=== PATIENT | female | born 1950 | race Caucasian/White ===

== ENCOUNTER 2017-07-17 13:27 | Outpatient (CLI) | payer MEDICARE, BC | END 2017-07-17 13:28 | disposition home or self-care (01) | LOC: BICULT 13:27 | PROVIDERS: ATTEND Urology | DX: N28.1 Cyst of kidney, acquired (principal); N28.89 Other specified disorders of kidney and ureter; N39.41 Urge incontinence | CPT/HCPCS: 76770 ==

== ENCOUNTER 2020-03-09 10:32 | Outpatient (CLI) | payer MEDICARE, OTHER ==
--- NOTE | 2020-03-09 13:24 | MRI ---
MRI lumbar spine noncontrast: HISTORY: Acute lumbar radiculopathy. Lumbar stenosis with neurogenic claudication. COMPARISON: 10/26/2013 FINDINGS: Appropriate T1 marrow signal intensity of the lumbar vertebra. Lumbar spine vertebral body heights ar e maintained. No fracture. Remote Schmorl's node along the superior endplate of T12, inferior endplate of L1 on the inferior endplate of L2, inferior endplate of L3. No significant STIR hyperinte nsity to suggest vertebral body edema or ligamentous injury. There are minimal type I Modic changes along the posterior L3-L4 disc space. Appropriate signal intensity in the visualized paraspinal muscles and solid organs Conus medullaris terminates at the inferior aspect of L1. There are bilateral renal parapelvic cysts as well as cortical cyst Spondylolisthesis: 2.6 mm of retrolisthesis of L3 upon L4 and 4 mm of anterolisthesis of L4 upon L5 T12-L1:Adequate disc hydration. No significant central canal stenosis. Patent bilateral neural forami na L1-L2:Disc desiccation with mild loss of disc space height. Broad-based disc bulge with mild central canal stenosis. Mild bilateral neural foraminal narrowing L2-L3:Disc desiccation without significant loss of disc space height. Broad-based disc bulge abuts th e thecal sac. There is mild to moderate central canal stenosis. Narrowing of the left subarticular zone with partial obscuration the traversing left L3 nerve root. There is evidence of a midline annul ar fissure. Mild right neural foraminal narrowing. Moderate left neural foraminal narrowing due to disc material. L3-L4:Disc desiccation without significant loss of disc space height. Broad-based disc bulge results in mild stenosis of the thecal sac. Disc material encroaches upon bilateral subarticular zones. Contact upon bilateral traversing L4 nerve roots without significant obscuration. There is a midline annular fissure. Moderate right and [id number] left neural foraminal narrowing L4-L5:Disc desiccation without significant loss of disc space height. Broad-based disc bulge, ligamen t flavum thickening and facet result in moderate central canal stenosis. There is fluid in both facet joints. Mild narrowing of bilateral subarticular zones with partial obscuration traversing bila teral L5 nerve roots. Moderate bilateral neural foraminal narrowing L5-S1:Broad-based disc bulge without significant central canal stenosis or significant neural foramin al narrowing. Mild bilateral facet hypertrophy. IMPRESSION: Multilevel degenerative changes of the lumbar spine as detailed above. Transcribed Date/Time: 03/09/2020 1:33 PM
== END 2020-03-09 10:33 | disposition home or self-care (01) ==
LOC: BICMRI 10:32
PROVIDERS: ATTEND Anesthesiology Pain Medicine
DX: M48.062 Spinal stenosis, lumbar region with neurogenic claudication (principal); M47.26 Other spondylosis with radiculopathy, lumbar region
CPT/HCPCS: 72148

== ENCOUNTER 2020-10-30 15:21 | Emergency (ER) | payer OTHER, MEDICARE ==
[2020-10-30] MEDS ORDERED: HYDROcodone/Acetaminophen 10/325 mg Tablet ONE (18:47)
[2020-10-30] MEDS ORDERED: Ketorolac Tromethamine 30 MG/ML VIAL ONE ×2 (18:47)
== END 2020-10-30 19:12 | disposition home or self-care (01) ==
LOC: ERS 15:21
DX: S06.0X0A Concussion without loss of consciousness, initial encounter (principal); S22.32XA Fracture of one rib, left side, initial encounter for closed fracture; I10 Essential (primary) hypertension; E78.5 Hyperlipidemia, unspecified; K21.9 Gastro-esophageal reflux disease without esophagitis; W01.198A Fall on same level from slipping, tripping and stumbling with subsequent striking against other object, initial encounter
CPT/HCPCS: 70450; 96372; J1885

== ENCOUNTER 2020-11-23 11:58 | Outpatient (CLI) | payer MEDICARE | END 2020-11-23 11:59 | disposition home or self-care (01) | LOC: BICRAD 11:58 | PROVIDERS: ATTEND Nurse Practitioner Family | DX: M53.3 Sacrococcygeal disorders, not elsewhere classified (principal); M54.42 Lumbago with sciatica, left side; M54.41 Lumbago with sciatica, right side; R10.2 Pelvic and perineal pain; M47.816 Spondylosis without myelopathy or radiculopathy, lumbar region; S32.19XD Other fracture of sacrum, subsequent encounter for fracture with routine healing | CPT/HCPCS: 72110; 72170; 72220 ==

== ENCOUNTER 2021-12-24 13:06 | Inpatient (IN) | payer MEDICARE ==
[2021-12-24 13:53] LABS: #Eosinphils 0.1 thou/uL (0.0-0.7); #Lymphocytes 1.6 thou/uL (1.20-3.40); #Monocytes 0.6 thou/uL (0.11-0.59); %Basophils 0.5 % (0.0-1.0); %Monocytes 8.2 % (0.0-10.0); %Neutrophils 68.2 % (42.0-75.0); Hemoglobin 12.9 g/dL (12.0-16.0); Mean Corpuscular Hemoglobin 28.5 pg (27.0-31.0); Mean Platelet Volume 9.2 fL (7.4-10.4); Platelet Count 169 thou/uL (130-400); RBC Distribution Width 12.9 % (11.5-14.5); Red Blood Cell (RBC) Count 4.51 mill/uL (4.20-5.40); White Blood Cell (WBC) Count 7.3 thou/uL (4.8-10.8)
[2021-12-24 14:29] LABS: ALT (SGPT) 15 U/L (8-55); AST (SGOT) 20 U/L (5-34); Albumin 3.8 g/dL (3.4-4.8); Alkaline Phosphatase 92 U/L (40-110); Anion Gap 15 mmol/L (10-20); BUN (Urea Nitrogen) 16 mg/dL (9.8-20.1); Bilirubin, Total 1.4 mg/dL (0.2-1.2); Calc. Creatinine Clearance 0 mL/min (70-130); Calcium 9.2 mg/dL (7.8-10.44); Carbon Dioxide 20 mmol/L (23-31); Chloride 109 mmol/L (98-107); Estimated GFR 41; Globulin 2.2 g/dL (2.4-3.5); Glucose 117 mg/dL (83-110); Lipase 12 U/L (8-78); Potassium 3.7 mmol/L (3.5-5.1); Sodium 140 mmol/L (136-145)
[2021-12-24] MEDS ORDERED: Iopamidol-370 76% 500 ML 1 ML ONE (14:30)
[2021-12-24 14:43] LABS: CKMB 1.7 ng/mL (0-6.6)
[2021-12-24] MEDS ORDERED: Aspirin Chewable 81 MG TAB ONE (16:14)
[2021-12-24] MEDS ORDERED: Furosemide 40 MG/4 ML VIAL ONE (16:15)
[2021-12-24] MEDS ORDERED: Nitroglycerin 2% Ointment 1 INCH/1 GM Packet ONE (16:15)
[2021-12-24] MEDS ORDERED: hydrALAZINE 20 MG/ML VIAL SLOW IVP PRN (20:00)
[2021-12-24] MEDS ORDERED: Losartan 25 MG TAB PO SCH (21:00)
[2021-12-24] MEDS ORDERED: PAROXETINE HCL 40 MG PO SCH (21:00)
[2021-12-24] MEDS: Trospium 20 MG TAB PO SCH (21:37)
[2021-12-24] MEDS: hydrOXYzine 10 MG TAB PO PRN (21:39)
[2021-12-24] MEDS: Topiramate 25 MG TAB PO SCH (21:39)
[2021-12-24] MEDS: PARoxetine 20 MG TAB PO SCH (21:39)
[2021-12-24 23:57] LABS: Troponin I 0.154 ng/mL (< 0.028)
[2021-12-24] MEDS ORDERED: HYDROcodone/Acetaminophen 10/325 mg Tablet PO PRN (23:58)
[2021-12-25 03:52] VITALS: BMI 31.2
[2021-12-25 04:34] LABS: #Basophils 0.1 thou/uL (0.0-0.2); #Eosinphils 0.1 thou/uL (0.0-0.7); #Lymphocytes 1.8 thou/uL (1.20-3.40); #Monocytes 0.5 thou/uL (0.11-0.59); #Neutrophils 3.4 thou/uL (1.40-6.50); %Basophils 0.9 % (0.0-1.0); %Eosinophils 0.9 % (0.0-10.0); %Lymphocytes 30.3 % (21.0-51.0); %Monocytes 9.2 % (0.0-10.0); %Neutrophils 58.6 % (42.0-75.0); Hemoglobin 12.5 g/dL (12.0-16.0); Mean Corpuscular HGB CONC 32.3 g/dL (32.0-36.0); Mean Corpuscular Hemoglobin 29.5 pg (27.0-31.0); Mean Corpuscular Volume 91.5 fl (78.0-98.0); Mean Platelet Volume 9.6 fL (7.4-10.4); Platelet Count 141 thou/uL (130-400); RBC Distribution Width 13.1 % (11.5-14.5); Red Blood Cell (RBC) Count 4.23 mill/uL (4.20-5.40); White Blood Cell (WBC) Count 5.9 thou/uL (4.8-10.8)
[2021-12-25 05:24] LABS: ALT (SGPT) 13 U/L (8-55); AST (SGOT) 15 U/L (5-34); Albumin 3.5 g/dL (3.4-4.8); Alkaline Phosphatase 85 U/L (40-110); Anion Gap 14 mmol/L (10-20); BUN (Urea Nitrogen) 14 mg/dL (9.8-20.1); Calc. Creatinine Clearance 62 mL/min (70-130); Calcium 9.1 mg/dL (7.8-10.44); Carbon Dioxide 21 mmol/L (23-31); Chloride 108 mmol/L (98-107); Estimated GFR 53; Globulin 2.2 g/dL (2.4-3.5); Glucose 98 mg/dL (83-110); Potassium 3.2 mmol/L (3.5-5.1); Protein, Total 5.7 g/dL (5.8-8.1); Sodium 140 mmol/L (136-145)
[2021-12-25] MEDS ORDERED: Furosemide 20 MG/2 ML VIAL SLOW IVP SCH (06:00)
[2021-12-25] MEDS: Furosemide 20 MG/2 ML VIAL SLOW IVP SCH ×2 (06:05→13:37)
[2021-12-25] MEDS ORDERED: Non-Formulary Item 1 EACH (Paroxetine Hcl [Paroxetine Hcl] 10 MG Tablet) PO SCH (07:30)
[2021-12-25] MEDS ORDERED: Potassium Chloride 20 MEQ TAB PO SCH (08:30)
[2021-12-25] MEDS ORDERED: Enoxaparin Sodium 40 MG/0.4 ML SYRINGE SC SCH (09:00)
[2021-12-25] MEDS ORDERED: Spironolactone 25 MG TAB PO SCH (09:45)
[2021-12-25 10:20] LABS: Cardiac Risk 3.1 (Less than 4.5); Cholesterol 109 mg/dl (< 200 Desired); HDL Cholesterol 35 mg/dL (>60 Neg Risk); LDL Cholesterol, Calculated 42 mg/dL; Magnesium 1.6 mg/dL (1.6-2.6); Phosphorus 3.5 mg/dL (2.3-4.7); Triglycerides 158 mg/dL (Less than 150)
[2021-12-25] MEDS: Atorvastatin Calcium 40 MG TAB PO SCH (10:47)
[2021-12-25] MEDS ORDERED: Acetaminophen 325 MG TAB PO PRN (12:04)
[2021-12-25] MEDS ORDERED: Magnesium 2 GM/50 ML(in water) 1 GM in Premix Bag 1 BAG IVPB SCH (12:15)
[2021-12-25] MEDS ORDERED: Potassium Phosphate 9 MMOL in Sodium Chloride 0.9% 100 ML IVPB SCH (12:30)
[2021-12-25] MEDS ORDERED: Communication Order-Pharmacy FS PRN (13:30)
[2021-12-25] MEDS: Carvedilol 6.25 MG TAB PO SCH (20:35)
[2021-12-25] MEDS: Trospium 20 MG TAB PO SCH (20:36)
[2021-12-25] MEDS: Topiramate 25 MG TAB PO SCH (20:36)
[2021-12-25] MEDS: PARoxetine 20 MG TAB PO SCH (20:36)
[2021-12-25] MEDS: hydrOXYzine 10 MG TAB PO PRN (20:37)
[2021-12-25] MEDS ORDERED: Losartan 25 MG TAB PO SCH (21:00)
[2021-12-26 05:15] LABS: #Lymphocytes 1.5 thou/uL (1.20-3.40); #Monocytes 0.6 thou/uL (0.11-0.59); #Neutrophils 3.2 thou/uL (1.40-6.50); %Basophils 0.3 % (0.0-1.0); %Eosinophils 0.8 % (0.0-10.0); %Lymphocytes 27.8 % (21.0-51.0); %Neutrophils 60.1 % (42.0-75.0); Mean Corpuscular HGB CONC 31.9 g/dL (32.0-36.0); Mean Corpuscular Hemoglobin 29.2 pg (27.0-31.0); Mean Corpuscular Volume 91.6 fl (78.0-98.0); Mean Platelet Volume 9.4 fL (7.4-10.4); Platelet Count 129 thou/uL (130-400); RBC Distribution Width 12.9 % (11.5-14.5); Red Blood Cell (RBC) Count 4.11 mill/uL (4.20-5.40); White Blood Cell (WBC) Count 5.3 thou/uL (4.8-10.8)
[2021-12-26 05:35] LABS: Anion Gap 12 mmol/L (10-20); BUN (Urea Nitrogen) 14 mg/dL (9.8-20.1); Calc. Creatinine Clearance 61 mL/min (70-130); Calcium 8.7 mg/dL (7.8-10.44); Carbon Dioxide 27 mmol/L (23-31); Chloride 105 mmol/L (98-107); Estimated GFR 52; Glucose 94 mg/dL (83-110); Phosphorus 4.2 mg/dL (2.3-4.7); Potassium 3.2 mmol/L (3.5-5.1); Sodium 141 mmol/L (136-145)
[2021-12-26] MEDS: PARoxetine 20 MG TAB PO SCH ×2 (05:48→21:09)
[2021-12-26] MEDS: Spironolactone 25 MG TAB PO SCH (05:48)
[2021-12-26] MEDS: Atorvastatin Calcium 40 MG TAB PO SCH (05:48)
[2021-12-26] MEDS: Sacubitril 49 MG/Valsartan 51 MG TABLET PO SCH ×2 (05:49→21:08)
[2021-12-26] MEDS: Carvedilol 6.25 MG TAB PO SCH ×2 (05:49→21:08)
[2021-12-26] MEDS ORDERED: Midazolam HCl 2 mg/2 ml Vial ONE (06:49)
[2021-12-26] MEDS ORDERED: Fentanyl 100 MCG/2 ML VIAL ONE (06:49)
[2021-12-26] MEDS ORDERED: Heparin 10,000 UNITS/ 10 ML VIAL ONE (06:50)
[2021-12-26] MEDS ORDERED: Lidocaine 1% (PF) 30 ML VIAL ONE (06:50)
[2021-12-26] MEDS: Furosemide 20 MG/2 ML VIAL SLOW IVP SCH ×2 (07:38→14:15)
[2021-12-26] MEDS ORDERED: Sacubitril 49 MG/Valsartan 51 MG TABLET PO SCH (09:00)
[2021-12-26] MEDS ORDERED: Empagliflozin 10 MG TAB PO SCH (09:00)
[2021-12-26] MEDS ORDERED: Iopamidol 370 76% 100 ML VIAL ONE (12:21)
[2021-12-26] MEDS ORDERED: Potassium Chloride 20 MEQ TAB PO SCH (16:00)
[2021-12-26] MEDS ORDERED: Docusate 100 MG CAP PO PRN (20:47)
[2021-12-26] MEDS: Trospium 20 MG TAB PO SCH (21:09)
[2021-12-26] MEDS: hydrOXYzine 10 MG TAB PO PRN (21:09)
[2021-12-26] MEDS: Topiramate 25 MG TAB PO SCH (21:09)
[2021-12-27 04:42] LABS: #Eosinphils 0.1 thou/uL (0.0-0.7); #Lymphocytes 1.4 thou/uL (1.20-3.40); #Monocytes 0.5 thou/uL (0.11-0.59); #Neutrophils 2.8 thou/uL (1.40-6.50); %Basophils 0.5 % (0.0-1.0); %Eosinophils 1.3 % (0.0-10.0); %Lymphocytes 29.1 % (21.0-51.0); %Monocytes 10.4 % (0.0-10.0); %Neutrophils 58.7 % (42.0-75.0); Mean Corpuscular HGB CONC 31.3 g/dL (32.0-36.0); Mean Corpuscular Hemoglobin 28.6 pg (27.0-31.0); Mean Corpuscular Volume 91.6 fl (78.0-98.0); Mean Platelet Volume 9.5 fL (7.4-10.4); Platelet Count 135 thou/uL (130-400); RBC Distribution Width 13.2 % (11.5-14.5); Red Blood Cell (RBC) Count 4.19 mill/uL (4.20-5.40); White Blood Cell (WBC) Count 4.8 thou/uL (4.8-10.8)
[2021-12-27 05:03] LABS: Anion Gap 15 mmol/L (10-20); BUN (Urea Nitrogen) 11 mg/dL (9.8-20.1); Calc. Creatinine Clearance 63 mL/min (70-130); Calcium 8.5 mg/dL (7.8-10.44); Carbon Dioxide 23 mmol/L (23-31); Chloride 106 mmol/L (98-107); Estimated GFR 57; Glucose 101 mg/dL (83-110); Potassium 3.7 mmol/L (3.5-5.1); Sodium 140 mmol/L (136-145)
[2021-12-27] MEDS: Furosemide 20 MG/2 ML VIAL SLOW IVP SCH ×2 (05:59→18:14)
[2021-12-27] MEDS: Carvedilol 6.25 MG TAB PO SCH ×2 (08:41→21:01)
[2021-12-27] MEDS: Sacubitril 49 MG/Valsartan 51 MG TABLET PO SCH ×2 (08:41→21:01)
[2021-12-27] MEDS: Atorvastatin Calcium 40 MG TAB PO SCH (08:43)
[2021-12-27] MEDS: Spironolactone 25 MG TAB PO SCH (08:43)
[2021-12-27] MEDS: Empagliflozin 10 MG TAB PO SCH (08:43)
[2021-12-27] MEDS: PARoxetine 20 MG TAB PO SCH ×2 (08:51→21:01)
[2021-12-27] MEDS ORDERED: FLU VACC QS2022-23(65YR UP)/PF 240 MCG/0.7 ML SYRINGE IM ONE (09:00)
[2021-12-27] MEDS ORDERED: Enoxaparin Sodium 40 MG/0.4 ML SYRINGE SC SCH (21:00)
[2021-12-27] MEDS: Trospium 20 MG TAB PO SCH (21:01)
[2021-12-27] MEDS: Topiramate 25 MG TAB PO SCH (21:03)
[2021-12-28 04:41] LABS: #Eosinphils 0.1 thou/uL (0.0-0.7); #Lymphocytes 1.9 thou/uL (1.20-3.40); #Monocytes 0.6 thou/uL (0.11-0.59); #Neutrophils 3.7 thou/uL (1.40-6.50); %Basophils 0.7 % (0.0-1.0); %Eosinophils 2.2 % (0.0-10.0); %Lymphocytes 29.9 % (21.0-51.0); %Monocytes 9.9 % (0.0-10.0); %Neutrophils 57.3 % (42.0-75.0); Hemoglobin 13.7 g/dL (12.0-16.0); Mean Corpuscular HGB CONC 32.3 g/dL (32.0-36.0); Mean Corpuscular Hemoglobin 29.8 pg (27.0-31.0); Mean Corpuscular Volume 92.5 fl (78.0-98.0); Mean Platelet Volume 8.8 fL (7.4-10.4); Platelet Count 155 thou/uL (130-400); RBC Distribution Width 13.2 % (11.5-14.5); Red Blood Cell (RBC) Count 4.59 mill/uL (4.20-5.40); White Blood Cell (WBC) Count 6.4 thou/uL (4.8-10.8)
[2021-12-28 04:43] LABS: Anion Gap 14 mmol/L (10-20); BUN (Urea Nitrogen) 15 mg/dL (9.8-20.1); Calc. Creatinine Clearance 58 mL/min (70-130); Calcium 9.1 mg/dL (7.8-10.44); Carbon Dioxide 24 mmol/L (23-31); Chloride 107 mmol/L (98-107); Estimated GFR 53; Glucose 113 mg/dL (83-110); Potassium 3.7 mmol/L (3.5-5.1); Sodium 141 mmol/L (136-145)
[2021-12-28] MEDS ORDERED: Furosemide 40 MG TAB PO SCH (07:30)
[2021-12-28] MEDS ORDERED: Furosemide 20 MG TAB PO SCH (07:30)
[2021-12-28] MEDS: Spironolactone 25 MG TAB PO SCH (09:07)
[2021-12-28] MEDS: Atorvastatin Calcium 40 MG TAB PO SCH (09:08)
[2021-12-28] MEDS: PARoxetine 20 MG TAB PO SCH (09:08)
[2021-12-28] MEDS: Empagliflozin 10 MG TAB PO SCH (09:09)
[2021-12-28] MEDS: Carvedilol 6.25 MG TAB PO SCH (09:09)
[2021-12-28] MEDS: Sacubitril 49 MG/Valsartan 51 MG TABLET PO SCH (09:09)
[2021-12-28 14:33] VITALS: BP 107/55; TEMP 98.6
== END 2021-12-28 18:45 | disposition home or self-care (01) | DRG 286 ==
LOC: ERS 13:06 → 2NO 17:39
PROVIDERS: ADMIT Student in an Organized Health Care Education/Training Program; ATTEND Student in an Organized Health Care Education/Training Program
PROC: 4A023N7 Measurement of Cardiac Sampling and Pressure, Left Heart, Percutaneous Approach (ICD-10-PCS; principal; 2021-12-26)
PROC: B2111ZZ Fluoroscopy of Multiple Coronary Arteries using Low Osmolar Contrast (ICD-10-PCS; 2021-12-26)
PROC: B2151ZZ Fluoroscopy of Left Heart using Low Osmolar Contrast (ICD-10-PCS; 2021-12-26)
DX: I13.0 Hypertensive heart and chronic kidney disease with heart failure and stage 1 through stage 4 chronic kidney disease, or unspecified chronic kidney disease (principal); I50.21 Acute systolic (congestive) heart failure; I24.8 Other forms of acute ischemic heart disease; Z20.822 Contact with and (suspected) exposure to COVID-19; K21.9 Gastro-esophageal reflux disease without esophagitis; G89.29 Other chronic pain; F32.A Depression, unspecified; M19.90 Unspecified osteoarthritis, unspecified site; M81.0 Age-related osteoporosis without current pathological fracture; F41.0 Panic disorder [episodic paroxysmal anxiety]; N18.31 Chronic kidney disease, stage 3a; E87.6 Hypokalemia; I44.7 Left bundle-branch block, unspecified; F41.9 Anxiety disorder, unspecified; I42.9 Cardiomyopathy, unspecified; Z98.890 Other specified postprocedural states; Z79.899 Other long term (current) drug therapy; Z88.0 Allergy status to penicillin; Z88.8 Allergy status to other drugs, medicaments and biological substances; Z90.710 Acquired absence of both cervix and uterus
CPT/HCPCS: 36415; 71275; 80048; 80053; 80061; 82553; 83690; 83735; 83880; 84100; 84484; 85025; 85520; 93005; 93306; 93458; 93798; 96374; 99152; C1769; J1644; J1650; J1940; J2001; J2250; J3010; J3475; J3490; Q9967; U0003; U0005

== ENCOUNTER 2022-05-01 10:54 | Outpatient (CLI) | payer MEDICARE ==
[2022-05-01 12:19] LABS: Hemoglobin 13.3 g/dL (12.0-15.5); Mean Corpuscular HGB CONC 32.3 g/dL (32.0-36.0); Mean Corpuscular Hemoglobin 30.3 pg (27.0-33.0); Mean Corpuscular Volume 93.8 fl (81.6-98.3); Mean Platelet Volume 10.6 fl (7.4-10.4); Platelet Count 157 10x3/uL (150-450); RBC Distribution Width 14.2 % (11.5-14.5); Red Blood Cell (RBC) Count 4.39 10x6/uL (3.90-5.03); White Blood Cell (WBC) Count 6.2 10x3/uL (3.5-10.5)
[2022-05-01 12:53] LABS: Anion Gap 13 mmol/L (10-20); BUN (Urea Nitrogen) 19 mg/dL (9.8-20.1); Calc. Creatinine Clearance 0 mL/min (70-130); Calcium 9.4 mg/dL (7.8-10.44); Carbon Dioxide 23 mmol/L (23-31); Chloride 109 mmol/L (98-107); Estimated GFR 45; Glucose 93 mg/dL (83-110); Potassium 4.4 mmol/L (3.5-5.1); Sodium 141 mmol/L (136-145)
== END 2022-05-01 10:55 | disposition home or self-care (01) ==
LOC: LABBT 10:54
PROVIDERS: ATTEND Internal Medicine Cardiovascular Disease
DX: Z01.812 Encounter for preprocedural laboratory examination (principal); I50.22 Chronic systolic (congestive) heart failure
CPT/HCPCS: 80048; 85027

== ENCOUNTER 2022-05-03 07:50 | Day surgery (SDC) | payer MEDICARE ==
[2022-05-01 13:47] VITALS: BMI 27.1
[2022-05-03] MEDS ORDERED: Midazolam HCl 2 mg/2 ml Vial ONE (10:55)
[2022-05-03] MEDS ORDERED: Ketamine 50 MG/ML (10ML VIAL) ONE ×2 (10:56)
[2022-05-03] MEDS ORDERED: Clindamycin/D5W 900 mg/50 ml Premix Bag ONE (10:57)
[2022-05-03] MEDS ORDERED: Gentamicin 80 MG/2 ML VIAL ONE (10:57)
[2022-05-03] MEDS ORDERED: Lidocaine 1% (PF) 30 ML VIAL ONE ×2 (11:02→12:12)
[2022-05-03] MEDS ORDERED: Vancomycin 500 MG VIAL (PEDI) ONE (11:38)
[2022-05-03] MEDS ORDERED: FENTANYL 50 MCG/ML 1 ML VIAL ONE (12:47)
[2022-05-03] MEDS ORDERED: Iopamidol 370 76% 100 ML VIAL ONE (14:42)
[2022-05-03] MEDS ORDERED: Doxycycline 100 MG CAP PO SCH (21:00)
== END 2022-05-03 16:50 | disposition home or self-care (01) ==
LOC: SDC 07:50
PROVIDERS: ATTEND Internal Medicine Cardiovascular Disease
PROC: 0JH609Z Insertion of Cardiac Resynchronization Defibrillator Pulse Generator into Chest Subcutaneous Tissue and Fascia, Open Approach (ICD-10-PCS; principal; 2022-05-03)
PROC: 02H63KZ Insertion of Defibrillator Lead into Right Atrium, Percutaneous Approach (ICD-10-PCS; 2022-05-03)
PROC: 02HK3KZ Insertion of Defibrillator Lead into Right Ventricle, Percutaneous Approach (ICD-10-PCS; 2022-05-03)
PROC: 02HL3KZ Insertion of Defibrillator Lead into Left Ventricle, Percutaneous Approach (ICD-10-PCS; 2022-05-03)
DX: I44.7 Left bundle-branch block, unspecified (principal); I11.0 Hypertensive heart disease with heart failure; I50.22 Chronic systolic (congestive) heart failure; I42.8 Other cardiomyopathies; E78.00 Pure hypercholesterolemia, unspecified; K21.9 Gastro-esophageal reflux disease without esophagitis; G89.29 Other chronic pain; M54.9 Dorsalgia, unspecified; M79.7 Fibromyalgia; M19.90 Unspecified osteoarthritis, unspecified site; Z87.891 Personal history of nicotine dependence; Z88.0 Allergy status to penicillin; Z88.8 Allergy status to other drugs, medicaments and biological substances; Z95.5 Presence of coronary angioplasty implant and graft; Z79.84 Long term (current) use of oral hypoglycemic drugs; Z79.82 Long term (current) use of aspirin; Z79.899 Other long term (current) drug therapy
CPT/HCPCS: 33225; 33249; 71045; 93005; 93641; C1777; C1882; C1898; C1900; J3010; 33216; J1580; J2001; J2250; J3371; J3490; Q9967

== ENCOUNTER 2022-05-10 12:39 | Inpatient (IN) | payer MEDICARE ==
[2022-05-10 13:26] LABS: Hemoglobin 12.7 g/dL (12.0-16.0); Mean Corpuscular HGB CONC 32.6 g/dL (32.0-36.0); Mean Corpuscular Hemoglobin 31.1 pg (27.0-31.0); Mean Corpuscular Volume 95.4 fl (78.0-98.0); Mean Platelet Volume 8.4 fL (7.4-10.4); Platelet Count 83 10x3/uL (130-400); RBC Distribution Width 12.7 % (11.5-14.5); Red Blood Cell (RBC) Count 4.08 mill/uL (4.20-5.40); White Blood Cell (WBC) Count 7.1 10x3/uL (4.8-10.8)
[2022-05-10] MEDS ORDERED: Morphine 4 MG/ML VIAL ONE (13:28)
[2022-05-10] MEDS ORDERED: Aspirin Chewable 81 MG TAB ONE (13:29)
[2022-05-10] MEDS ORDERED: Ondansetron PF 4 MG/2 ML Vial ONE (13:29)
[2022-05-10 13:34] LABS: ALT (SGPT) 16 U/L (8-55); AST (SGOT) 17 U/L (5-34); Albumin 3.5 g/dL (3.4-4.8); Alkaline Phosphatase 107 U/L (40-110); Anion Gap 11 mmol/L (10-20); BUN (Urea Nitrogen) 31 mg/dL (9.8-20.1); Bilirubin, Total 0.5 mg/dL (0.2-1.2); Calc. Creatinine Clearance 0 mL/min (70-130); Carbon Dioxide 20 mmol/L (23-31); Chloride 113 mmol/L (98-107); Estimated GFR 58; Globulin 2.5 g/dL (2.4-3.5); Glucose 97 mg/dL (83-110); Potassium 3.8 mmol/L (3.5-5.1); Sodium 140 mmol/L (136-145)
[2022-05-10] MEDS ORDERED: Furosemide 20 MG/2 ML VIAL ONE (13:43)
[2022-05-10 13:57] LABS: CKMB 0.7 ng/mL (0-6.6)
[2022-05-10 14:37] LABS: #Eosinphils 0.2 thou/uL (0.0-0.7); #Monocytes 0.6 thou/uL (0.11-0.59); #Neutrophils 4.3 thou/uL (1.40-6.50); %Basophils 0.4 % (0.0-1.0); %Eosinophils 2.7 % (0.0-10.0); %Lymphocytes 28.2 % (21.0-51.0); %Monocytes 7.9 % (0.0-10.0); %Neutrophils 60.9 % (42.0-75.0); Band 1 % (5-11); Eosinophils 1 % (0-10); Lymphocytes 24 % (21-51); MDiff Complete? YES; Monocytes 2 % (0-10); Neutrophil 72 % (42-75); Platelet Morphology Comment Appears Decreased; RBC Morphology Normal
[2022-05-10] MEDS ORDERED: Ondansetron ODT 4 MG TAB PO PRN (15:25)
[2022-05-10] MEDS ORDERED: Ondansetron PF 4 MG/2 ML Vial IVP PRN (15:25)
[2022-05-10] MEDS ORDERED: Acetaminophen 325 MG TAB PO PRN (15:25)
[2022-05-10] MEDS ORDERED: Heparin 25,000 units/D5W 500 ML ONE (15:27)
[2022-05-10] MEDS ORDERED: Heparin 25,000 units/D5W 500 ML IVPB SCH (15:30)
[2022-05-10] MEDS ORDERED: Heparin 10,000 UNITS/ 10 ML VIAL SLOW IVP SCH (15:30)
[2022-05-10] MEDS ORDERED: Heparin 10,000 UNITS/ 10 ML VIAL ONE (15:33)
[2022-05-10 17:54] LABS: PTT 27.7 sec (22.9-36.1); Prothrombin Time 14.1 sec (12.0-14.7)
[2022-05-10 21:48] LABS: PTT Greater than 250.0 sec (22.9-36.1)
[2022-05-10] MEDS: Atorvastatin Calcium 40 MG TAB PO SCH (21:52)
[2022-05-10] MEDS ORDERED: Topiramate 25 MG TAB PO SCH (22:30)
[2022-05-10] MEDS ORDERED: PARoxetine 20 MG TAB PO SCH ×2 (22:30)
[2022-05-10] MEDS ORDERED: Carvedilol 6.25 MG TAB PO SCH (22:30)
[2022-05-11 00:10] LABS: PTT 228.3 sec (22.9-36.1)
[2022-05-11 03:19] LABS: #Basophils 0.1 thou/uL (0.0-0.2); #Eosinphils 0.2 thou/uL (0.0-0.7); #Lymphocytes 2.5 thou/uL (1.20-3.40); #Monocytes 0.5 thou/uL (0.11-0.59); #Neutrophils 3.1 thou/uL (1.40-6.50); %Basophils 1.3 % (0.0-1.0); %Eosinophils 2.8 % (0.0-10.0); %Lymphocytes 39.5 % (21.0-51.0); %Monocytes 8.1 % (0.0-10.0); %Neutrophils 48.3 % (42.0-75.0); Hemoglobin 12.8 g/dL (12.0-16.0); Mean Corpuscular HGB CONC 33.7 g/dL (32.0-36.0); Mean Corpuscular Hemoglobin 32.1 pg (27.0-31.0); Mean Corpuscular Volume 95.5 fl (78.0-98.0); Mean Platelet Volume 8.2 fL (7.4-10.4); Platelet Count 78 10x3/uL (130-400); RBC Distribution Width 12.5 % (11.5-14.5); Red Blood Cell (RBC) Count 3.99 mill/uL (4.20-5.40); White Blood Cell (WBC) Count 6.4 10x3/uL (4.8-10.8)
[2022-05-11 03:49] LABS: Anion Gap 13 mmol/L (10-20); BUN (Urea Nitrogen) 32 mg/dL (9.8-20.1); Calc. Creatinine Clearance 61 mL/min (70-130); Calcium 9.2 mg/dL (7.8-10.44); Carbon Dioxide 21 mmol/L (23-31); Chloride 111 mmol/L (98-107); Estimated GFR 59; Glucose 97 mg/dL (83-110); Sodium 141 mmol/L (136-145)
[2022-05-11] MEDS: Empagliflozin 10 MG TAB PO SCH (10:12)
[2022-05-11] MEDS: Topiramate 25 MG TAB PO SCH ×2 (10:12→20:55)
[2022-05-11] MEDS: Spironolactone 25 MG TAB PO SCH (10:17)
[2022-05-11] MEDS: Carvedilol 6.25 MG TAB PO SCH ×2 (10:17→18:36)
[2022-05-11 11:35] LABS: PTT 227.8 sec (22.9-36.1)
[2022-05-11 14:15] LABS: PTT 124.1 sec (22.9-36.1)
[2022-05-11 15:01] VITALS: BMI 27.1
[2022-05-11] MEDS: Atorvastatin Calcium 40 MG TAB PO SCH (20:54)
[2022-05-11] MEDS ORDERED: PARoxetine 20 MG TAB PO SCH ×2 (21:00)
[2022-05-12 02:28] LABS: #Basophils 0.1 thou/uL (0.0-0.2); #Eosinphils 0.2 thou/uL (0.0-0.7); #Lymphocytes 2.2 thou/uL (1.20-3.40); #Monocytes 0.5 thou/uL (0.11-0.59); #Neutrophils 4.2 thou/uL (1.40-6.50); %Eosinophils 2.4 % (0.0-10.0); %Lymphocytes 30.2 % (21.0-51.0); %Monocytes 7.4 % (0.0-10.0); Hemoglobin 12.7 g/dL (12.0-16.0); Mean Corpuscular HGB CONC 32.9 g/dL (32.0-36.0); Mean Corpuscular Hemoglobin 31.6 pg (27.0-31.0); Mean Corpuscular Volume 95.9 fl (78.0-98.0); Mean Platelet Volume 8.3 fL (7.4-10.4); Platelet Count 88 10x3/uL (130-400); RBC Distribution Width 12.5 % (11.5-14.5); White Blood Cell (WBC) Count 7.2 10x3/uL (4.8-10.8)
[2022-05-12 02:42] LABS: PTT 127.9 sec (22.9-36.1)
[2022-05-12 03:21] LABS: Anion Gap 11 mmol/L (10-20); BUN (Urea Nitrogen) 43 mg/dL (9.8-20.1); Calc. Creatinine Clearance 54 mL/min (70-130); Calcium 9.1 mg/dL (7.8-10.44); Carbon Dioxide 23 mmol/L (23-31); Chloride 110 mmol/L (98-107); Estimated GFR 51; Glucose 103 mg/dL (83-110); Potassium 4.3 mmol/L (3.5-5.1); Sodium 140 mmol/L (136-145)
[2022-05-12] MEDS: Carvedilol 6.25 MG TAB PO SCH (08:52)
[2022-05-12] MEDS: Topiramate 25 MG TAB PO SCH (08:52)
[2022-05-12] MEDS: Spironolactone 25 MG TAB PO SCH (08:53)
[2022-05-12] MEDS: Empagliflozin 10 MG TAB PO SCH (08:53)
[2022-05-12] MEDS ORDERED: Apixaban 5 MG TAB PO SCH (09:00)
[2022-05-12 12:02] VITALS: BP 122/59; TEMP 97.5
[2022-05-19] MEDS ORDERED: Apixaban 5 MG TAB PO SCH (09:00)
== END 2022-05-12 15:07 | disposition home or self-care (01) | DRG 300 ==
LOC: ERS 12:39 → 2NO 15:25
PROVIDERS: ADMIT Student in an Organized Health Care Education/Training Program; ATTEND Hospitalist
DX: I82.622 Acute embolism and thrombosis of deep veins of left upper extremity (principal); I42.8 Other cardiomyopathies; I50.22 Chronic systolic (congestive) heart failure; Z20.822 Contact with and (suspected) exposure to COVID-19; I08.3 Combined rheumatic disorders of mitral, aortic and tricuspid valves; I11.0 Hypertensive heart disease with heart failure; F41.0 Panic disorder [episodic paroxysmal anxiety]; G89.29 Other chronic pain; M81.0 Age-related osteoporosis without current pathological fracture; F32.9 Major depressive disorder, single episode, unspecified; F17.210 Nicotine dependence, cigarettes, uncomplicated; E78.00 Pure hypercholesterolemia, unspecified; Z95.810 Presence of automatic (implantable) cardiac defibrillator; Z85.3 Personal history of malignant neoplasm of breast; Z90.11 Acquired absence of right breast and nipple; Z88.0 Allergy status to penicillin; Z88.8 Allergy status to other drugs, medicaments and biological substances; Z79.899 Other long term (current) drug therapy; Z79.82 Long term (current) use of aspirin; Z98.1 Arthrodesis status; Z98.890 Other specified postprocedural states
CPT/HCPCS: 36415; 71045; 80048; 80053; 82553; 83690; 83880; 84484; 85025; 85610; 85730; 93005; 93306; 96365; 96375; J1644; J1940; J2270; J2405; U0003; U0005

== ENCOUNTER 2022-06-24 13:48 | Outpatient (CLI) | payer MEDICARE ==
[~2022-06-24 13:48] MED LIST: Iopamidol 370 76% 100 ML VIAL ONE
== END 2022-06-24 13:49 | disposition home or self-care (01) ==
LOC: CT 13:48
PROVIDERS: ATTEND Family Medicine
DX: R91.8 Other nonspecific abnormal finding of lung field (principal); J90 Pleural effusion, not elsewhere classified; R60.0 Localized edema
CPT/HCPCS: 71260; Q9967

== ENCOUNTER 2022-11-08 16:57 | Emergency (ER) | payer MEDICARE ==
[2022-11-08] MEDS ORDERED: Morphine 4 MG/ML VIAL ONE (17:45)
[2022-11-08] MEDS ORDERED: Ondansetron PF 4 MG/2 ML Vial ONE (17:45)
== END 2022-11-08 19:48 | disposition home or self-care (01) ==
LOC: ERS 16:57
DX: S32.010A Wedge compression fracture of first lumbar vertebra, initial encounter for closed fracture (principal); M54.9 Dorsalgia, unspecified; G89.29 Other chronic pain; E78.5 Hyperlipidemia, unspecified; K21.9 Gastro-esophageal reflux disease without esophagitis; I11.0 Hypertensive heart disease with heart failure; I50.9 Heart failure, unspecified; Z79.899 Other long term (current) drug therapy; X50.0XXA Overexertion from strenuous movement or load, initial encounter
CPT/HCPCS: 72100; 96374; 96375; J2270; J2405

== ENCOUNTER 2022-12-03 10:53 | Outpatient (CLI) | payer MEDICARE | END 2022-12-03 10:54 | disposition home or self-care (01) | LOC: RAD 10:53 | PROVIDERS: ATTEND Anesthesiology Pain Medicine | DX: S32.010A Wedge compression fracture of first lumbar vertebra, initial encounter for closed fracture (principal) | CPT/HCPCS: 71046 ==

== ENCOUNTER 2022-12-27 09:29 | Outpatient (CLI) | payer MEDICARE | END 2022-12-27 09:30 | disposition home or self-care (01) | LOC: BICCT 09:29 | PROVIDERS: ATTEND Family Medicine | DX: R91.8 Other nonspecific abnormal finding of lung field (principal); J90 Pleural effusion, not elsewhere classified | CPT/HCPCS: 71250 ==

== ENCOUNTER 2023-04-08 18:25 | Inpatient (IN) | payer MEDICARE ==
[2023-04-08 19:32] LABS: #Eosinphils 0.1 thou/uL (0.0-0.7); #Monocytes 0.3 thou/uL (0.11-0.59); #Neutrophils 7.7 thou/uL (1.40-6.50); %Basophils 0.3 % (0.0-1.0); %Eosinophils 0.8 % (0.0-10.0); %Lymphocytes 10.3 % (21.0-51.0); %Monocytes 3.4 % (0.0-10.0); %Neutrophils 84.8 % (42.0-75.0); Hematocrit 36.3 % (36.0-47.0); Hemoglobin 11.5 g/dL (12.0-16.0); Mean Corpuscular HGB CONC 31.7 g/dL (32.0-36.0); Mean Corpuscular Hemoglobin 28.1 pg (27.0-31.0); Mean Corpuscular Volume 88.8 fl (78.0-98.0); Mean Platelet Volume 10.7 fL (7.4-10.4); Platelet Count 130 10x3/uL (130-400); RBC Distribution Width 14.7 % (11.5-14.5); Red Blood Cell (RBC) Count 4.09 mill/uL (4.20-5.40); White Blood Cell (WBC) Count 9.1 10x3/uL (4.8-10.8)
[2023-04-08 19:53] LABS: ALT (SGPT) 10 U/L (8-55); AST (SGOT) 13 U/L (5-34); Albumin 3.4 g/dL (3.4-4.8); Alkaline Phosphatase 106 U/L (40-110); Anion Gap 7 mmol/L (10-20); BUN (Urea Nitrogen) 18 mg/dL (9.8-20.1); Bilirubin, Total 0.6 mg/dL (0.2-1.2); Calc. Creatinine Clearance 0 mL/min (70-130); Calcium 8.6 mg/dL (7.8-10.44); Carbon Dioxide 21 mmol/L (23-31); Chloride 116 mmol/L (98-107); Estimated GFR 73; Globulin 2.5 g/dL (2.4-3.5); Glucose 122 mg/dL (83-110); Potassium 3.9 mmol/L (3.5-5.1); Protein, Total 5.9 g/dL (5.8-8.1); Sodium 140 mmol/L (136-145)
[2023-04-08] MEDS ORDERED: Ipratropium/Albuterol 3 ML NEB NEB PRN (19:57)
[2023-04-08] MEDS ORDERED: Ondansetron ODT 4 MG TAB SL PRN (20:00)
[2023-04-08] MEDS ORDERED: Ondansetron PF 4 MG/2 ML Vial IVP PRN (20:00)
[2023-04-08] MEDS ORDERED: Acetaminophen 325 MG TAB PO PRN (20:00)
[2023-04-08 20:09] LABS: Prothrombin Time 13.4 sec (12.0-14.7)
[2023-04-08 20:10] LABS: PTT 27.7 sec (22.9-36.1)
[2023-04-08] MEDS ORDERED: Morphine 4 MG/ML VIAL ONE (20:12)
[2023-04-08] MEDS ORDERED: Famotidine/PF 20 mg/2ml Vial ONE (22:20)
[2023-04-08] MEDS ORDERED: Carvedilol 6.25 MG TAB ONE (22:20)
[2023-04-08] MEDS ORDERED: Acetaminophen 500 MG TAB ONE (22:20)
[2023-04-08] MEDS ORDERED: Morphine 2 MG/ML VIAL ONE (22:21)
[2023-04-08] MEDS: Acetaminophen 500 MG TAB PO SCH (22:32)
[2023-04-08] MEDS: Sodium Chloride 0.9% 1,000 ML IV SCH (22:32)
[2023-04-08] MEDS: Morphine 2 MG/ML VIAL SLOW IVP PRN (22:33)
[2023-04-08] MEDS: Famotidine/PF 20 mg/2ml Vial SLOW IVP SCH (22:33)
[2023-04-08 22:43] VITALS: BMI 29.5
[2023-04-08] MEDS: Carvedilol 6.25 MG TAB PO SCH (22:52)
[2023-04-08] MEDS: Senokot S 8.6-50 MG TAB PO SCH (22:54)
[2023-04-09 04:16] LABS: #Monocytes 0.4 thou/uL (0.11-0.59); #Neutrophils 4.9 thou/uL (1.40-6.50); %Basophils 0.2 % (0.0-1.0); %Lymphocytes 12.4 % (21.0-51.0); %Monocytes 6.7 % (0.0-10.0); %Neutrophils 80.5 % (42.0-75.0); Hematocrit 34.3 % (36.0-47.0); Hemoglobin 10.5 g/dL (12.0-16.0); Mean Corpuscular HGB CONC 30.6 g/dL (32.0-36.0); Mean Corpuscular Volume 88.2 fl (78.0-98.0); Mean Platelet Volume 10.6 fL (7.4-10.4); Platelet Count 132 10x3/uL (130-400); RBC Distribution Width 14.7 % (11.5-14.5); Red Blood Cell (RBC) Count 3.89 mill/uL (4.20-5.40); White Blood Cell (WBC) Count 6.1 10x3/uL (4.8-10.8)
[2023-04-09 04:32] LABS: INR-International Normal Ratio 1.1; Prothrombin Time 13.7 sec (12.0-14.7)
[2023-04-09 04:33] LABS: PTT 28.3 sec (22.9-36.1)
[2023-04-09] MEDS ORDERED: Morphine 4 MG/ML VIAL ONE (04:50)
[2023-04-09 05:47] LABS: Anion Gap 9 mmol/L (10-20); BUN (Urea Nitrogen) 19 mg/dL (9.8-20.1); Calc. Creatinine Clearance 75 mL/min (70-130); Calcium 8.4 mg/dL (7.8-10.44); Carbon Dioxide 23 mmol/L (23-31); Chloride 114 mmol/L (98-107); Estimated GFR 75; Glucose 124 mg/dL (83-110); Potassium 3.9 mmol/L (3.5-5.1); Sodium 142 mmol/L (136-145)
[2023-04-09] MEDS ORDERED: Acetaminophen 500 MG TAB ONE (07:54)
[2023-04-09] MEDS ORDERED: Sacubitril 49 MG/Valsartan 51 MG TABLET ONE (07:55)
[2023-04-09] MEDS ORDERED: Carvedilol 6.25 MG TAB ONE (07:55)
[2023-04-09] MEDS ORDERED: Famotidine/PF 20 mg/2ml Vial ONE (07:55)
[2023-04-09] MEDS ORDERED: Atorvastatin Calcium 40 MG TAB ONE (07:55)
[2023-04-09] MEDS: Spironolactone 25 MG TAB PO SCH (08:30)
[2023-04-09] MEDS: Sacubitril 49 MG/Valsartan 51 MG TABLET PO SCH (08:31)
[2023-04-09] MEDS: Atorvastatin Calcium 40 MG TAB PO SCH (08:31)
[2023-04-09] MEDS: Polyethylene Glycol 3350 17 GM Packet PO SCH (08:31)
[2023-04-09] MEDS ORDERED: Morphine 2 MG/ML VIAL ONE (08:47)
[2023-04-09] MEDS ORDERED: PROPOFOL 20 ML ONE (11:04)
[2023-04-09] MEDS ORDERED: Ondansetron PF 4 MG/2 ML Vial ONE (11:04)
[2023-04-09] MEDS ORDERED: fentaNYL PF 100 MCG/2 ML SYRINGE ONE (11:04)
[2023-04-09] MEDS ORDERED: Dexamethasone 20 MG/5 ML VIAL ONE (11:04)
[2023-04-09] MEDS ORDERED: Lidocaine 1% PF 5 ML VIAL ONE (11:04)
[2023-04-09] MEDS ORDERED: Lidocaine 2% 6 ML (Jelly) SYR ONE (11:05)
[2023-04-09] MEDS ORDERED: Clindamycin/D5W 900 mg/50 ml Premix Bag ONE (11:35)
[2023-04-09] MEDS ORDERED: PHENYLEPHRINE-NS 100 MCG/ML 10 ML SYRINGE ONE (11:52)
[2023-04-09] MEDS ORDERED: ePHEDrine Sulfate 50 MG/10 ML VIAL ONE (11:55)
[2023-04-09] MEDS ORDERED: Clindamycin/D5W 900 MG in Premix 1 BAG IVPB SCH (12:00)
[2023-04-09] MEDS ORDERED: Promethazine HCl 25 MG/ML VIAL IM PRN (12:51)
[2023-04-09] MEDS ORDERED: HYDROmorphone 2 MG/ML VIAL SLOW IVP PRN (12:51)
[2023-04-09] MEDS ORDERED: Ondansetron HCl/PF 4 MG/2 ML Vial IVP PRN (12:51)
[2023-04-09] MEDS ORDERED: fentaNYL 50 mcg/mL 1 mL Vial ONE ×2 (13:25→13:44)
[2023-04-09] MEDS: Ketorolac Tromethamine 30 MG (1 mL) VIAL IVP SCH ×2 (14:33)
[2023-04-09] MEDS: traMADol HCl 50 MG TAB PO SCH (14:34)
[2023-04-09] MEDS: Clindamycin/D5W 900 MG in Premix 1 BAG IVPB SCH (19:56)
[2023-04-10 04:20] LABS: #Monocytes 0.4 thou/uL (0.11-0.59); #Neutrophils 4.6 thou/uL (1.40-6.50); %Lymphocytes 10.8 % (21.0-51.0); %Monocytes 7.3 % (0.0-10.0); %Neutrophils 81.5 % (42.0-75.0); Hematocrit 26.3 % (36.0-47.0); Hemoglobin 8.2 g/dL (12.0-16.0); Mean Corpuscular HGB CONC 31.2 g/dL (32.0-36.0); Mean Corpuscular Hemoglobin 27.5 pg (27.0-31.0); Mean Corpuscular Volume 88.3 fl (78.0-98.0); Mean Platelet Volume 10.6 fL (7.4-10.4); RBC Distribution Width 14.7 % (11.5-14.5); Red Blood Cell (RBC) Count 2.98 mill/uL (4.20-5.40); White Blood Cell (WBC) Count 5.6 10x3/uL (4.8-10.8)
[2023-04-10 05:15] LABS: Platelet Count 113 10x3/uL (130-400)
[2023-04-10] MEDS: Aspirin 81 mg Enteric Coated Tablet PO SCH (08:39)
[2023-04-10] MEDS: Famotidine 20 MG TAB PO SCH (08:39)
[2023-04-11] MEDS: traMADol HCl 50 MG TAB PO PRN (09:11)
[2023-04-11] MEDS: HYDROcodone/Acetaminophen 10/325 mg Tablet PO PRN (11:32)
[2023-04-11] MEDS: Acetaminophen 325 MG TAB PO SCH (11:41)
[2023-04-11] MEDS ORDERED: Acetaminophen 325 MG (10.15 ML) UDCUP PO SCH (12:00)
[2023-04-12] MEDS: Ondansetron ODT 4 MG TAB PO PRN (12:15)
[2023-04-12] MEDS: Topiramate 25 MG TAB PO SCH (20:41)
[2023-04-12] MEDS: Cyclobenzaprine 10 MG TAB PO PRN (20:41)
[2023-04-12] MEDS: Ascorbic Acid 500 mg Chewable Tablet PO SCH (20:42)
[2023-04-12] MEDS: Ondansetron PF 4 MG/2 ML Vial IVP PRN (20:42)
[2023-04-12] MEDS: PARoxetine 20 MG TAB PO SCH ×2 (20:43→20:44)
[2023-04-13 06:19] LABS: #Eosinphils 0.2 thou/uL (0.0-0.7); #Monocytes 0.5 thou/uL (0.11-0.59); #Neutrophils 3.9 thou/uL (1.40-6.50); %Basophils 0.1 % (0.0-1.0); %Eosinophils 3.3 % (0.0-10.0); %Lymphocytes 30.3 % (21.0-51.0); %Monocytes 7.6 % (0.0-10.0); %Neutrophils 58.4 % (42.0-75.0); Hematocrit 23.6 % (36.0-47.0); Hemoglobin 7.5 g/dL (12.0-16.0); Mean Corpuscular HGB CONC 31.8 g/dL (32.0-36.0); Mean Corpuscular Hemoglobin 28.3 pg (27.0-31.0); Mean Corpuscular Volume 89.1 fl (78.0-98.0); Mean Platelet Volume 10.7 fL (7.4-10.4); Platelet Count 146 10x3/uL (130-400); RBC Distribution Width 15.3 % (11.5-14.5); Red Blood Cell (RBC) Count 2.65 mill/uL (4.20-5.40); White Blood Cell (WBC) Count 6.7 10x3/uL (4.8-10.8)
[2023-04-13] MEDS: Ferrous Sulfate 325 MG TAB PO SCH (08:17)
[2023-04-13] MEDS: Ibuprofen 200 MG TAB PO SCH (12:45)
[2023-04-13] MEDS: Gabapentin 100 MG CAP PO SCH (15:08)
[2023-04-14 04:47] LABS: Hematocrit 24.6 % (36.0-47.0); Hemoglobin 7.6 g/dL (12.0-16.0)
[2023-04-14] MEDS: Famotidine 20 MG TAB PO SCH (09:37)
[2023-04-15 04:48] LABS: #Eosinphils 0.3 thou/uL (0.0-0.7); #Monocytes 0.5 thou/uL (0.11-0.59); #Neutrophils 2.8 thou/uL (1.40-6.50); %Basophils 0.2 % (0.0-1.0); %Eosinophils 5.4 % (0.0-10.0); %Lymphocytes 29.7 % (21.0-51.0); %Monocytes 9.8 % (0.0-10.0); %Neutrophils 54.3 % (42.0-75.0); Hematocrit 22.5 % (36.0-47.0); Hemoglobin 6.9 g/dL (12.0-16.0); Mean Corpuscular HGB CONC 30.7 g/dL (32.0-36.0); Mean Corpuscular Hemoglobin 27.9 pg (27.0-31.0); Mean Corpuscular Volume 91.1 fl (78.0-98.0); Mean Platelet Volume 10.5 fL (7.4-10.4); Platelet Count 163 10x3/uL (130-400); RBC Distribution Width 15.8 % (11.5-14.5); Red Blood Cell (RBC) Count 2.47 mill/uL (4.20-5.40); White Blood Cell (WBC) Count 5.2 10x3/uL (4.8-10.8)
[2023-04-15 05:09] LABS: Anion Gap 9 mmol/L (10-20); BUN (Urea Nitrogen) 28 mg/dL (9.8-20.1); Calc. Creatinine Clearance 50 mL/min (70-130); Calcium 8.4 mg/dL (7.8-10.44); Carbon Dioxide 26 mmol/L (23-31); Chloride 109 mmol/L (98-107); Estimated GFR 46; Glucose 101 mg/dL (83-110); Magnesium 1.9 mg/dL (1.6-2.6); Phosphorus 4.5 mg/dL (2.3-4.7); Potassium 4.6 mmol/L (3.5-5.1); Sodium 139 mmol/L (136-145)
[2023-04-16] MEDS: Sacubitril 49 MG/Valsartan 51 MG TABLET PO SCH (08:09)
[2023-04-16 08:18] LABS: #Eosinphils 0.2 thou/uL (0.0-0.7); #Monocytes 0.7 thou/uL (0.11-0.59); #Neutrophils 4.7 thou/uL (1.40-6.50); %Basophils 0.2 % (0.0-1.0); %Eosinophils 3.3 % (0.0-10.0); %Monocytes 10.8 % (0.0-10.0); %Neutrophils 70.8 % (42.0-75.0); Hematocrit 27.5 % (36.0-47.0); Hemoglobin 8.6 g/dL (12.0-16.0); Mean Corpuscular HGB CONC 31.3 g/dL (32.0-36.0); Mean Corpuscular Hemoglobin 28.2 pg (27.0-31.0); Mean Corpuscular Volume 90.2 fl (78.0-98.0); Mean Platelet Volume 10.2 fL (7.4-10.4); Platelet Count 184 10x3/uL (130-400); RBC Distribution Width 16.2 % (11.5-14.5); Red Blood Cell (RBC) Count 3.05 mill/uL (4.20-5.40); White Blood Cell (WBC) Count 6.6 10x3/uL (4.8-10.8)
[2023-04-16 12:14] VITALS: TEMP 98.5
[2023-04-16] MEDS ORDERED: Docusate 100 MG CAP PO PRN (12:48)
[2023-04-16] MEDS: Milk Of Magnesia 30 ML UDCUP PO SCH (15:42)
[2023-04-16 15:57] VITALS: BP 119/71
== END 2023-04-16 18:27 | disposition swing bed (61) | DRG 481 ==
LOC: ERS 18:25 → ERHOLD 19:31 → SURG A 19:39
PROVIDERS: ADMIT Specialist; ATTEND Specialist
PROC: 0QS704Z Reposition Left Upper Femur with Internal Fixation Device, Open Approach (ICD-10-PCS; principal; 2023-04-09)
PROC: 30233N1 Transfusion of Nonautologous Red Blood Cells into Peripheral Vein, Percutaneous Approach (ICD-10-PCS; 2023-04-15)
DX: S72.142A Displaced intertrochanteric fracture of left femur, initial encounter for closed fracture (principal); D62 Acute posthemorrhagic anemia; K21.9 Gastro-esophageal reflux disease without esophagitis; E78.5 Hyperlipidemia, unspecified; I50.9 Heart failure, unspecified; M81.0 Age-related osteoporosis without current pathological fracture; F32.A Depression, unspecified; F17.210 Nicotine dependence, cigarettes, uncomplicated; I11.0 Hypertensive heart disease with heart failure; W19.XXXA Unspecified fall, initial encounter; G89.29 Other chronic pain; Z98.890 Other specified postprocedural states; Z95.0 Presence of cardiac pacemaker; Z88.0 Allergy status to penicillin; Z88.8 Allergy status to other drugs, medicaments and biological substances; Z79.01 Long term (current) use of anticoagulants; Z85.3 Personal history of malignant neoplasm of breast; Z90.710 Acquired absence of both cervix and uterus; Y92.009 Unspecified place in unspecified non-institutional (private) residence as the place of occurrence of the external cause
CPT/HCPCS: 36415; 36430; 70450; 72125; 72170; 80048; 80053; 83735; 84100; 85014; 85018; 85025; 85610; 85730; 86850; 86900; 86901; 93005; 96374; C1713; G0390; J1100; J1885; J2270; J2272; J2405; J2704; J3010; J3490; J7050; P9016; Q0162; S0028